=== PATIENT | female | born 1960 | race Caucasian/White ===

== ENCOUNTER 2020-02-17 18:15 | Emergency (ER) | payer MEDICAID ==
[~2020-02-17] VITALS: Ht 165.1 cm; Wt 72.7 kg
[~2020-02-17 18:15] MED LIST: ANAS1TAB10 PO; CHOL100046 PO; HYDR-3686 PO; OSC500T PO
--- NOTE | 2020-02-17 19:15 | NUR ---
CSM INTACT IN RIGHT DISTAL EXTREMITY. LORELEI WRAP APPLIED
[2020-02-17 19:28] VITALS: BP 112/93
== END 2020-02-17 19:29 | disposition home or self-care (01) ==
LOC: ER 18:15
DX: S93.401A Sprain of unspecified ligament of right ankle, initial encounter (principal); F17.200 Nicotine dependence, unspecified, uncomplicated; Z85.3 Personal history of malignant neoplasm of breast; Z98.890 Other specified postprocedural states; Z72.89 Other problems related to lifestyle; Z88.0 Allergy status to penicillin; Z79.899 Other long term (current) drug therapy; W01.0XXA Fall on same level from slipping, tripping and stumbling without subsequent striking against object, initial encounter; Y93.89 Activity, other specified; Y92.89 Other specified places as the place of occurrence of the external cause; Y99.8 Other external cause status
CPT/HCPCS: 73610; 99284